=== PATIENT | female | born 1995 | race Caucasian/White ===

== ENCOUNTER 2019-09-29 14:11 | Emergency (ER) | payer SELFPAY | END 2019-09-29 16:09 | disposition left against medical advice (07) | LOC: ED 14:11 | DX: R11.2 Nausea with vomiting, unspecified (principal); R19.7 Diarrhea, unspecified; Z53.21 Procedure and treatment not carried out due to patient leaving prior to being seen by health care provider | CPT/HCPCS: 99281 ==